=== PATIENT | male | born 1980 | race Caucasian/White ===

== ENCOUNTER 2019-03-17 13:12 | Emergency (ER) | payer BC, SELFPAY ==
[2019-03-17 13:23] VITALS: BP 113/74; PULSE 91; RESP 18; TEMP 36.8; O2SAT 98
--- NOTE | 2019-03-17 13:25 | ED.GENADULT ---
HPI - General Adult General Chief complaint: Upper Respiratory Infection Stated complaint: Congestion,Cough Source: patient and RN notes reviewed Mode of arrival: ambulatory Limitations: no limitations History of Present Illness HPI narrative: This is a 38 years old male presents to the office for an evaluation of cough since last night. Associated with feeling chilled and freezing.He smoke about 2 cigarettes a day.His mother is sick with bronchitis.No treatment prior to arrival. Related Data Allergies Allergy/AdvReac Type Severity Reaction Status Date / Time No Known Allergies Allergy Verified 02/06/19 10:08 Review of Systems Review of Systems: Narrative: CONSTITUTIONAL: Denies fever ENT:Reports head congestion, sore throat. Denies otalgia. CARDIOVASCULAR: Denies chest pain RESPIRATORY: Denies dyspnea, wheezing. Reports dry cough GASTROINTESTINAL: Denies abdominal pain, vomiting, diarrhea. +nausea GENITOURINARY: Denies urinary symptoms or discharge SKIN: Denies rash MUSCULOSKELETAL: Denies acute back pain NEUROLOGIC: Denies lightheaded PMFSH Family History Family History Mother Patient's mother is in good health Father Patient's father is in good health Sibling Patient's sister is in good health Social History Social History Smoking status: Current every day smoker Smoking end date: 02/05/14 Alcohol intake: never Comments At time of signature, I agree with nursing past medical, surgical, social and family history. There is no relevant family history pertinent to the presenting complaint. Exam Narrative: Exam Narrative: GENERAL: This is a well-nourished, well-developed patient, in no apparent distress. EYES: Sclera clear/white. Vision is grossly intact. EARS: External ears normal, auditory canals clear and without drainage, TMs normal without perforation. Hearing grossly intact. NOSE: External nose normal with no obvious nasal discharge, nares without redness, no rhinorrhea. THROAT: Mucous membranes moist, posterior pharynx erythema, edematous with drainage NECK: Neck supple, non-tender without lymphadenopathy, masses or thyromegaly. CARDIOVASCULAR: Regular rate and rhythm without murmurs, gallops, or rubs. RESPIRATORY: Clear to auscultation. Breath sounds equal bilaterally. No wheezes, rales, or rhonchi. GASTROINTESTINAL: Abdomen soft, non-tender, nondistended. Bowel sounds are active. No hepato-splenomegaly, or palpable masses. No guarding. SKIN: warm, intact with no suspicious lesions or rash, good texture and turgor. NEURO: awake, alert, and oriented to person, place and time. There were no obvious focal neurologic abnormalities. Steady gait Gerardo Coma Scale Eye Opening: Spontaneous 4 Gerardo Coma Scale Motor: Obeys Commands 6 Gerardo Coma Scale Verbal: Oriented 5 Course Vital Signs Vital signs: Vital Signs Temperature 98.3 F 03/17/19 13:23 Pulse Rate 91 03/17/19 13:23 Respiratory Rate 18 03/17/19 13:23 Blood Pressure 113/74 03/17/19 13:23 Pulse Oximetry 98 03/17/19 13:23 Temperature 98.3 F 03/17/19 13:23 Pulse Rate 91 03/17/19 13:23 Respiratory Rate 18 03/17/19 13:23 Blood Pressure 113/74 03/17/19 13:23 Pulse Oximetry 98 03/17/19 13:23 Medical Decision Making MDM Narrative Medical decision making narrative: Discharge instructions reviewed with patient, as well as provided in writing per nursing staff. The instructions also include specific and strict return/GO TO THE ER as well as f/u information. All questions have been answered, and the patient deny any further questions with discharge and discharge plan. Differential Diagnosis Differential Diagnosis: pneumonia, Allergic Rhinitis, Upper respiratory cough syndrome, Pharyngitis, Sinusitis, Bronchitis, otitis media, viral URI, Asthma/reactive airway disease, influenza Medical Records
== END 2019-03-17 14:06 | disposition home or self-care (01) ==
PROVIDERS: Emergency Provider Nurse Practitioner
DX: J10.1 Influenza due to other identified influenza virus with other respiratory manifestations (principal); I10 Essential (primary) hypertension; E11.9 Type 2 diabetes mellitus without complications
CPT/HCPCS: 87081; 87804; 87880; 99213; G0463

== ENCOUNTER 2020-03-24 14:40 | Emergency (ER) | payer BC, SELFPAY ==
[2020-03-24 14:47] VITALS: BP 116/82; PULSE 84; RESP 18; TEMP 36.7; O2SAT 100
--- NOTE | 2020-03-24 15:28 | ED.ABDPAIN ---
HPI - Abdominal Pain General Chief Complaint: Abdominal Pain Stated Complaint: Right Side Pain Time Seen by Provider: 03/24/20 15:17 Source: patient and RN notes reviewed Mode of arrival: ambulatory Limitations: no limitations History of Present Illness HPI narrative: Patient presents today with a 3-day history of right upper quadrant abdominal pain that occasionally radiates into the back. States it is not present when he wakes up but worsens throughout the day every day. It does not wake him up while he is sleeping. States the pain is constant throughout the day. Associated symptoms include decreased appetite. Denies fever, nausea, vomiting, diarrhea, constipation, chest pain or shortness of breath, any urinary symptoms. Reports occasional increased pain with movement. Currently rates his pain 4/10 and has tried Tums without relief. History of diet-controlled type 2 diabetes, CVA, cardiac stents. MD elicited complaint: abdominal pain Related Data Home Medications Medication Instructions Recorded Confirmed No Home Medications 03/24/20 03/24/20 Allergies Allergy/AdvReac Type Severity Reaction Status Date / Time No Known Allergies Allergy Verified 03/24/20 15:04 Review of Systems Review of Systems: Narrative: CONSTITUTIONAL: Denies body aches, fever, chills, or sweats. EYES: Denies visual changes, redness, or discharge. ENT: Denies rhinorrhea, congestion, sore throat, or otalgia. CARDIOVASCULAR: Denies chest pain, palpitations, or edema. RESPIRATORY: Denies cough or dyspnea. GASTROINTESTINAL: Denies nausea, vomiting, or diarrhea. + Right upper quadrant abdominal pain, decreased appetite GENITOURINARY: Denies dysuria or hematuria. SKIN: Denies rash, itching, or wounds. MUSCULOSKELETAL: Denies back pain, joint pain, or myalgia. NEUROLOGIC: Denies headache, numbness, tingling, or weakness. PSYCH: Denies depression or anxiety. [facility] Past Medical History Medical History (Updated 03/24/20 @ 15:34 by Ramila Sam, DOTTY, ) CVA (cerebral vascular accident) Diabetes Hypertension Surgical History Surgical History (Updated 03/24/20 @ 15:29 by Ramila Sam, DOTTY, ) Hx of heart artery stent Family History Family History Mother Patient's mother is in good health Father Patient's father is in good health Sibling Patient's sister is in good health Social History Social History Smoking status: Current every day smoker Smoking end date: 02/05/14 Alcohol intake: never Gender identity (if verbalized by the patient): Male Comments At time of signature, I have reviewed and agree with nursing past medical, surgical, social and family history unless otherwise noted. Please see nursing chart for further information. There is no relevant family history pertinent to the presenting complaint Exam Narrative: Exam Narrative: GENERAL: Well-appearing, well-nourished, and in no acute distress. HEAD: Normocephalic, atraumatic. EYES: EOMI. No redness or drainage. Conjunctivae normal. ENT: Mucous membranes pink and moist. NECK: Normal AROM. CHEST: No respiratory distress. Clear to auscultation. HEART: Regular rate and rhythm. No murmur appreciated. Normal peripheral pulses. ABDOMEN: Soft, nontender, nondistended, normal active bowel sounds. No pulsatile masses. Patient localizes pain to the right upper quadrant. -CVAT MUSCULOSKELETAL: No bony tenderness. EXTREMITIES: Normal range of motion. No edema. SKIN: Warm, dry, no rash. Capillary refill normal. Normal skin turgor. NEURO: No focal deficits. Alert and oriented x3. Gait steady. PSYCH: Normal affect. No signs of depression or anxiety. Course Course Emergency Course: Patient will be transferred to [facility] for further evaluation of his right upper quadrant abdominal pain. Vital Signs Vital signs: Vital Signs Temperatu
== END 2020-03-24 15:33 | disposition short-term general hospital (02) ==
PROVIDERS: Emergency Provider Nurse Practitioner
DX: R10.11 Right upper quadrant pain (principal); F17.200 Nicotine dependence, unspecified, uncomplicated; E11.9 Type 2 diabetes mellitus without complications; I10 Essential (primary) hypertension; Z86.73 Personal history of transient ischemic attack (TIA), and cerebral infarction without residual deficits
CPT/HCPCS: 99212; G0463

== ENCOUNTER 2020-03-24 15:55 | Observation (INO) | payer BC, SELFPAY ==
--- NOTE | ~2020-03-24 | US_ITS ---
EXAMINATION: US abdomen limited DATE: 03/25/2020 09:30 INDICATION: Pancreatitis, epigastric abdominal pain TECHNIQUE: Multiple grayscale and Doppler ultrasound images of the abdomen were obtained. COMPARISON: None available FINDINGS: The head, body, and tail of the pancreas are normal. The liver is normal with normal echoge nicity and echotexture. No surface nodularity. Normal hepatopetal flow in the main portal vein. There are multiple, relatively immobile stones of the gallbladder. No gallbladder wall thickening or peric holecystic fluid are identified. The normal common bile duct measures 5 mm. There was no sonographic Calderón sign. IMPRESSION: 1. Likely multiple gallstones without evidence of cholecystitis. Reviewed, dictated and finalized at location A. ROSCOPE TESTER
--- NOTE | ~2020-03-24 | CT_ITS ---
EXAMINATION: CT abdomen pelvis w con EXAM DATE: 03/24/2020 18:09 INDICATION: Right upper quadrant pain, symptoms 3 days. TECHNIQUE: Spiral CT of the abdomen and pelvis was performed following intravenous injection of 100 m L Omnipaque 350. Axial, coronal and sagittal images were reviewed. The dose-length product (DLP) fo r this examination was 774.96 mGy-cm. The exposure was tailored according to patient size (auto mA e xposure control), and iterative reconstruction (ASIR) was used as additional dose reduction technique . There is no prior study for comparison. FINDINGS: There are indistinct fat planes adjacent to the pancreatic head, could indicate acute pancr eatitis. Please correlate with amylase and lipase levels. Probable hepatic steatosis. Spleen, adrenal glands are unremarkable. The gallbladder is contracted but otherwise unremarkable. Portal and sple lisa veins are patent. Kidneys enhance symmetrically. There is no hydronephrosis. Small regions of b ilateral renal cortical scarring from prior infection or infarction. Moderately diffusely thickened bladder wall, acute or chronic cystitis. Correlate with urinalysis. Th e prostate is unremarkable. There is no retroperitoneal or pelvic lymphadenopathy. There is mild scattered arteriosclerotic disease. The appendix is normal. The stomach and small bowel are unremarkable. There is moderate amount of c olonic stool. No free intraperitoneal gas. The heart is normal in size. There are no pericardial or pleural effusions. Dependent groundglass opacity most likely subsegmental atelectasis. There ar e no osteoblastic or osteolytic lesions identified. IMPRESSION: 1. Indistinct fat planes at pancreatic head, possible acute pancreatitis. Correlate with amylase and lipase. 2. Moderate diffuse bladder wall thickening. Correlate with urinalysis. 3. Bilateral renal cortical scarring from prior infections or infarctions. Reviewed, dictated and finalized at location A. AL RECRUITER IMPRESSION: 1. Indistinct fat planes at pancreatic head, possible acute pancreatitis. Emily elate with amylase and lipase. 2. Moderate diffuse bladder wall thickening. Correlate with urinalysis. 3. Bilateral renal cortical scarring from prior infections or infarctions.
[2020-03-24 15:59] VITALS: BP 131/80; PULSE 85; RESP 20; TEMP 36.1; O2SAT 100
[2020-03-24 16:09] LABS: Basophils Percent Auto 0.2 % (0.2-1.2); Eosinophils Absolute Auto 0.2 K/mm3 (0-0.3); Eosinophils Percent Auto 2.5 % (0-4.4); Hematocrit 53.2 % (42.0-52.0); Hemoglobin 18.8 g/dL (14.0-18.0); Immature Granulocyte Absolute 0.03 K/mm3 (0.00-0.031); Immature Granulocyte Percent A 0.3 % (0-0.5); Lymphocytes Absolute Auto 2.75 K/mm3 (0.9-3.2); Lymphocytes Percent Auto 31.5 % (18.3-44.2); Mean Corpuscular HGB Conc 35.3 g/dl (32-36); Mean Corpuscular Hemoglobin 33.2 pg (26-34); Mean Platelet Volume 9.8 fl (7.4-10.4); Monocytes Absolute Auto 1.1 K/mm3 (0.1-0.6); Monocytes Percent Auto 12.8 % (2.6-8.5); Neutrophils Absolute Auto 4.6 K/mm3 (1.3-6.7); Neutrophils Percent Auto 52.7 % (45.5-73.1); Platelet Count Result 213 k/mm3 (150-375); Red Blood Count 5.66 M/mm3 (4.6-6.20); Red Cell Distribution Width 12.6 % (11.5-14.5); White Blood Count 8.7 K/mm3 (4.5-10.0)
[2020-03-24 16:14] LABS: Add Urine Microscopic? YES; Appearance Urine Cloudy (Clear); Bacteria Urine Trace /hpf; Bilirubin Urine Negative (Negative); Blood Urine Negative (Negative); Color Urine Yellow (Yellow); Glucose Urine UA 3+ mg/dL (Negative); Ketones Urine Negative (Negative); Leukocyte Esterase Ur Trace LEU/UL (Negative); Mucus Urine Rare /lpf; Nitrate Urine Positive (Negative); Protein Urine Negative (Negative); RBC Urine 0-2 /hpf (0-2); Specific Grav Ur 1.023 (1.001-1.035); Squamous Epithelial Cell Urine Rare /hpf (Few); Urobilinogen Urine Negative mg/dL (<2.0); WBC Clumps Urine Present /HPF
[2020-03-24 16:23] LABS: Alanine Aminotransferase 35 U/L (4-50); Albumin Level 4.1 g/dL (3.5-5.1); Alkaline Phosphatase 57 U/L (38-126); Anion Gap 2 mmol/L (8-16); Aspartate Amino Transferase 26 U/L (17-59); Bilirubin,Total 0.7 mg/dL (0.2-1.3); Blood Urea Nitrogen 9 mg/dL (9-20); Calcium 9.2 mg/dL (8.4-10.2); Carbon Dioxide 33 mmol/L (22-30); Chloride 101 mmol/L (98-107); Estimated CRCL calculation 137 ml/min; Estimated Glomerular Filt Rate > 60; Glucose 237 mg/dL (75-110); Lipase 810 U/L (23-300); Potassium 4.2 mmol/L (3.4-5.0); Sodium 136 mmol/L (137-145)
[2020-03-24] MEDS: PANTOPRAZOLE SODIUM IV 40 MG VIAL IV PUSH (18:02)
[2020-03-24] MEDS: MORPHINE SULFATE (*CRX) 4 MG/ML INJ IV PUSH (18:02)
[2020-03-24] MEDS: SODIUM CHLORIDE 0.9% IV 1,000 ML 999 ML IV CONT (18:02)
--- NOTE | 2020-03-24 18:03 | PC.NURSE ---
Pt to CT via stretcher.
[2020-03-24 18:14] VITALS: BP 119/87; PULSE 78; RESP 15; O2SAT 98
--- NOTE | 2020-03-24 19:36 | ED.GENADULT ---
HPI - General Adult General Chief complaint: Abdominal Pain Stated complaint: ABD Pain Time Seen by Provider: 03/24/20 16:23 Source: patient Mode of arrival: ambulatory Limitations: no limitations History of Present Illness HPI narrative: Patient is 39-year-old male who presents with upper right-sided and epigastric abdominal pain for the last several days was seen in urgent care referred to emergency department denies similar occurrence in the past patient denies similar occurrence alcohol abuse injury or trauma or any relation to eating does note nausea and decreased appetite patient denies URI symptoms or other complaints has not taken anything for his symptoms and on arrival notes 4 out of 10 pain Related Data Home Medications Medication Instructions Recorded Confirmed No Home Medications 03/24/20 03/24/20 Allergies Allergy/AdvReac Type Severity Reaction Status Date / Time No Known Allergies Allergy Verified 03/24/20 15:04 Review of Systems Review of Systems: All systems reviewed & are unremarkable except as noted in HPI and below PMFSH Past Medical History Medical History CVA (cerebral vascular accident) Diabetes Hypertension Surgical History Surgical History Hx of heart artery stent Family History Family History Mother Patient's mother is in good health Father Patient's father is in good health Sibling Patient's sister is in good health Social History Social History Smoking status: Current every day smoker Smoking end date: 02/05/14 Alcohol intake: never Gender identity (if verbalized by the patient): Male Exam Narrative: Exam Narrative: GENERAL: Well-appearing, well-nourished, and in no acute distress. HEAD: Normocephalic, atraumatic. EYES: PERRLA and EOMI. ENT: Nares clear, no rhinorrhea or epistaxis. Mucous membranes moist. CHEST: Clear to auscultation. No respiratory distress. No wheezes rales or rhonchi HEART: Regular rate and rhythm. No murmur heard. Normal peripheral pulses. ABDOMEN: Soft, tenderness in the upper quadrants, nondistended. EXTREMITIES: Normal range of motion. No edema. SKIN: Warm, dry, no rash. NEURO: No focal deficits. Alert and oriented x3. Cranial nerves II through XII grossly intact. PSYCH: Normal mood and affect. Course Course Emergency Course: Patient in the room is been hydrated medicated will be brought into the hospital for pancreatitis urinary tract infection and hyperglycemia patient was hydrated in the emergency department agrees with plan to be hospitalized will have GI consult was also given antibiotics for his urinary tract infection Consultations Consultation #1: Discussed case with hospitalist Lelia was accepted the patient Discussed case with Dr. Shields who has accepted the patient for consult Date: 03/24/20 Time: 19:38 Vital Signs Vital signs: Vital Signs Temperature 96.9 F L 03/24/20 15:59 Pulse Rate 85 03/24/20 15:59 Respiratory Rate 20 03/24/20 15:59 Blood Pressure 131/80 03/24/20 15:59 Pulse Oximetry 100 03/24/20 15:59 Temperature 96.9 F L 03/24/20 15:59 Pulse Rate 78 03/24/20 18:14 Respiratory Rate 15 03/24/20 18:14 Blood Pressure 119/87 03/24/20 18:14 Pulse Oximetry 98 03/24/20 18:14 Medical Decision Making MDM Narrative Medical decision making narrative: Patient with several issues on this visit to include pancreatitis urinary tract infection will be brought in the hospital treated for these with GI consult under the hospitalist service hemodynamically stable ABCs intact and stable Vital Signs Vital Signs: Vital Signs Temperature 96.9 F L 03/24/20 15:59 Pulse Rate 85 03/24/20 15:59 Respiratory Rate 20 03/24/20 15:59 Blood Pressure 131/80 03/24
--- NOTE | 2020-03-24 21:23 | PC.NURSE ---
Called to give report to nurse. was told that nurse was in another room and will call me back.
[2020-03-24 21:45] VITALS: BP 110/73; PULSE 73; RESP 20; TEMP 36.7; O2SAT 100; BMI 29.0
--- NOTE | 2020-03-24 22:07 | PC.NURSE ---
This patient, Alexander Cook Jr., was admitted to 3 [facility] Surg Room 312-01. Patient/family oriented to hospital policies and general routines including ID bracelet, bed and alarms, visiting hours, pain management, procedures, bathroom and other care routines, personal items, smoking policy, room service/diet, and visiting hours. Information on how to activate the Rapid Response Team has been discussed. Patient/Family are encouraged to report perceived risks to care and to ask questions if they do not understand what they are told or what they should do.
[2020-03-24] MEDS: LACTATED RINGERS 1,000 ML 125 ML IV CONT (22:22)
[2020-03-25 00:30] LABS: Glucose Point of Care 122 (65-105)
--- NOTE | 2020-03-25 01:26 | PM.IMHP ---
H&P: HPI History of Present Illness Date/Time: 03/25/20 01:26 Chief Complaint: RUQ abd pain Narrative: This is a pleasant 39 year old male who is known to previously be healthy and presented to the hospital with a complaint of epigastric and RUQ abdominal pain for the past several days. He denies any trauma, alcohol abuse, or GB disease. He denies any vomiting but has had nausea with food intake. The patient denies any fevers, chills, chest pain, cough, dysuria, or rectal bleeding. CT abd/pelvis was obtained in the ER which demonstrated indistinct fat planes at pancreatic head. Lipase was mildly elevated at 810. The patient was admitted for observation. On my encounter with the patient he currently denies any symptoms and states that he wants to leave and go home first thing in the morning. No other complaints. Review of Systems Review of Systems: All systems reviewed & are unremarkable except as noted in HPI and below PMFSH Past Medical History Medical History CVA (cerebral vascular accident) Diabetes Hypertension Surgical History Surgical History Hx of heart artery stent Family History Family History Mother Patient's mother is in good health Father Patient's father is in good health Sibling Patient's sister is in good health Grandparent Acute myocardial infarction Social History Social History Years smoked: 20 Smoking status: Current every day smoker Tobacco type: cigars Smoking end date: 02/05/14 Alcohol intake: never Substance use: never Gender identity (if verbalized by the patient): Male Spiritual care concerns: No Meds Home Medications and Allergies Home Medications Medication Instructions Recorded Confirmed Type No Home Medications 03/24/20 03/24/20 History Allergies Allergy/AdvReac Type Severity Reaction Status Date / Time No Known Allergies Allergy Verified 03/24/20 15:04 Vital Signs Vital Signs - 24 hr 03/24/20 15:59 03/24/20 18:14 03/24/20 21:45 Temperature 36.1 C L 36.7 C Pulse Rate 85 78 73 Respiratory Rate 20 15 20 Blood Pressure 131/80 119/87 110/73 Pulse Oximetry 100 98 100 Exam Const: General: cooperative, no acute distress, alert and awake Nutritional Appearance: well nourished Orientation/consciousness: patient oriented x3 HENMT: Head: normal to inspection General nose exam: Normal external nose present Face and sinus: normal facial exam Mouth: Yes Normal oral and palatal mucosa present and Yes oropharynx normal Eyes: Pupils: Equal, round and reactive pupils present EOM: EOMs intact bilaterally Neck: Neck: supple and no JVD Thyroid: thyroid normal Lymphatic: lymphadenopathy not noted Resp: Effort & Inspection: normal respiratory effort Auscultation: clear to auscultation bilaterally Cardio: Rate: regular rate Rhythm: regular rhythm Heart sounds: no murmurs GI: Inspection: normal to inspection GI Palp: Yes abdominal tenderness (RUQ+ ), No Guarding due to palpation present (GI) and No Rigid due to palpation Auscultation: normal bowel sounds Rectal Exam: deferred Skin: General skin exam: normal color and no rashes or lesions noted Neuro: General: patient oriented x3 Cranial nerves: Yes CN's II-XII intact bilaterally and Yes Equal, round and reactive pupils present Speech: normal speech Motor exam (neuro): 5/5 motor strength present throughout Sensory Exam: normal sensation Extrem: General: normal to inspection and no edema Psych: Mental Status: mental status grossly normal Affect: normal affect H&P: Results Labs Labs: Short CBC 03/24/20 Range/Units 16:02 WBC 8.7 (4.5-10.0) K/mm3 Hgb 18.8 H (14.0-18.0) g/dL Hct 53.2 H (42.0-52.0) % Plt Count 213 (150-375) k/mm3 [facility] 03/08
[2020-03-25] MEDS: MORPHINE SULFATE (*CRX) 4 MG/ML INJ IV PUSH (02:07)
[2020-03-25 06:00] VITALS: BP 120/65; PULSE 80; RESP 20; TEMP 36.6; O2SAT 98
[2020-03-25] MEDS: LACTATED RINGERS 1,000 ML 125 ML IV CONT (06:09)
[2020-03-25 06:22] LABS: Basophils Percent Auto 0.5 % (0.2-1.2); Eosinophils Absolute Auto 0.2 K/mm3 (0-0.3); Eosinophils Percent Auto 2.6 % (0-4.4); Hematocrit 50.6 % (42.0-52.0); Hemoglobin 17.3 g/dL (14.0-18.0); Immature Granulocyte Absolute 0.02 K/mm3 (0.00-0.031); Immature Granulocyte Percent A 0.2 % (0-0.5); Lymphocytes Absolute Auto 2.92 K/mm3 (0.9-3.2); Lymphocytes Percent Auto 34.7 % (18.3-44.2); Mean Corpuscular HGB Conc 34.2 g/dl (32-36); Mean Corpuscular Hemoglobin 32.1 pg (26-34); Mean Corpuscular Volume 93.9 fl (80-100); Mean Platelet Volume 9.9 fl (7.4-10.4); Monocytes Percent Auto 11.9 % (2.6-8.5); Neutrophils Absolute Auto 4.2 K/mm3 (1.3-6.7); Neutrophils Percent Auto 50.1 % (45.5-73.1); Platelet Count Result 189 k/mm3 (150-375); Red Blood Count 5.39 M/mm3 (4.6-6.20); Red Cell Distribution Width 12.6 % (11.5-14.5); White Blood Count 8.4 K/mm3 (4.5-10.0)
[2020-03-25 06:34] LABS: Alanine Aminotransferase 26 U/L (4-50); Albumin Level 3.4 g/dL (3.5-5.1); Alkaline Phosphatase 51 U/L (38-126); Anion Gap 2 mmol/L (8-16); Aspartate Amino Transferase 22 U/L (17-59); Bilirubin,Total 0.8 mg/dL (0.2-1.3); Blood Urea Nitrogen 6 mg/dL (9-20); Calcium 8.8 mg/dL (8.4-10.2); Carbon Dioxide 30 mmol/L (22-30); Chloride 105 mmol/L (98-107); Estimated CRCL calculation 137 ml/min; Estimated Glomerular Filt Rate > 60; Glucose 121 mg/dL (75-110); Lipase 381 U/L (23-300); Potassium 4.2 mmol/L (3.4-5.0); Sodium 137 mmol/L (137-145)
[2020-03-25 06:38] LABS: Hemoglobin A1C 6.7 % (<5.7)
[2020-03-25 06:46] LABS: Glucose Point of Care 116 (65-105)
--- NOTE | 2020-03-25 08:27 | WPDGICN ---
Assessment and Plan Assessment and plan (1) Acute pancreatitis: Code(s): K85.90 - Acute pancreatitis without necrosis or infection, unspecified Status: Acute Assessment and Plan: he is asymptomatic now, will start full liquid diet then advance as tolerated he would like to go home today, he can follow up with me in office and then we can schedule EGD to look for other causes of abdominal pain patient was told by his vascular doctor that can not get MRI (I was planning to get MRCP to assess biliary tract and pancreas) because stents placed few years ago. (2) RUQ abdominal pain: Code(s): R10.11 - Right upper quadrant pain Status: Acute Assessment and Plan: resolved, probably from pancreatitis will do EGD as outpatient (3) Acute hyperglycemia: Code(s): R73.9 - Hyperglycemia, unspecified Status: Acute Assessment and Plan: will need to follow-up with pcp and recheck again, probably pre-DM (4) Urinary tract infection: Code(s): N39.0 - Urinary tract infection, site not specified Status: Acute Assessment and Plan: started on iv rocephin. GI Consult Note Consult date/time: 03/25/20 08:27 Reason for consult: abdominal pain, pancreatitis HPI: Alexander Cook Jr. is a 39 year old male with no major medical problems other than stents about 6 years ago here with new onset of pain in epigastric and RUQ abdominal pain for last 4 days progressively got worse. He denies previous episode of pancreatitis, biliary colic or alcohol use. He denies any nausea, no fever. Last time received pain med was at 130am and now he says that pain is gone, he is hungry and would like to go home today because have to go back to work. CT abd/pelvis reviewed which demonstrated indistinct fat planes at pancreatic head, possible acute pancreatitis. Lipase was mildly elevated at 810 down to 340, liver enzymes normal. Also had hyperglycemia. Review of Systems Constitutional: Constitutional: Denies headache(s) and Denies weakness Eyes: Eyes: Denies blurry vision ENT: Reports Normal hearing present, Denies headache(s) and Denies neck pain Cardiovascular: Cardiovascular: Denies chest pain and Denies dyspnea Respiratory: Respiratory: Denies dyspnea Gastrointestinal: Gastrointestinal: Reports no additional gastrointestinal complaints Genitourinary: Genitourinary: Denies dysuria Musculoskeletal: Musculoskeletal: Denies neck pain Integumentary/Breasts: Skin/Breast: Denies dry skin Neurologic: Reports Normal hearing present, Denies headache(s) and Denies weakness Psychiatric: Psychiatric: Denies anxiety Endocrine: Endocrine: Denies change in body appearance Hematologic/Lymphatic: Hematologic/Lymphatic: Denies easy bleeding Allergic/Immunologic: Allergic/Immunologic: Denies urticaria PMFSH Past Medical History Medical History CVA (cerebral vascular accident) Diabetes Hypertension Surgical History Surgical History Hx of heart artery stent Family History Family History Mother Patient's mother is in good health Father Patient's father is in good health Sibling Patient's sister is in good health Grandparent Acute myocardial infarction Social History Social History Years smoked: 20 Smoking status: Current every day smoker Tobacco type: cigars Smoking end date: 02/05/14 Alcohol intake: never Substance use: never Gender identity (if verbalized by the patient): Male Spiritual care concerns: No Meds Home Medications and Allergies Home Medications Medication Instructions Recorded Confirmed Type No Home Medications 03/24/20 03/24/20 History Allergies Allergy/AdvReac Type Severity Reaction Status Date / Time No Known Allergies Allergy
[2020-03-25] MEDS: PANTOPRAZOLE SODIUM IV 40 MG VIAL IV PUSH (09:20)
--- NOTE | 2020-03-25 10:02 | PM.DS ---
DS: Admitting Diagnosis Admitting Diagnosis Admitting Diagnosis: (1) RUQ abdominal pain: (2) Abnormal glucose: (3) Abnormal urinalysis: DS: Discharge Diagnosis Discharge Diagnosis (1) Tobacco abuse: Code(s): Z72.0 - Tobacco use Status: Acute Assessment and Plan: Patient is cutting down on amount. (2) Dyspepsia: Code(s): R10.13 - Epigastric pain Status: Acute Assessment and Plan: Will see Dr. Shields in the outpatient setting. (3) Abnormal glucose: Code(s): R73.09 - Other abnormal glucose Status: Acute Assessment and Plan: Will follow up in the outaptient setting. (4) Abnormal urinalysis: Code(s): R82.90 - Unspecified abnormal findings in urine Status: Acute Assessment and Plan: Not UTI low wbc (5) RUQ abdominal pain: Code(s): R10.11 - Right upper quadrant pain Status: Acute Assessment and Plan: Cholelithiasis will follow up in the outpatient setting with Dr. Shields. (6) Acute pancreatitis: Code(s): K85.90 - Acute pancreatitis without necrosis or infection, unspecified Status: Acute Assessment and Plan: Stable Will follow up in the outpatient setting Tolerating po (7) Acute hyperglycemia: Code(s): R73.9 - Hyperglycemia, unspecified Status: Acute Assessment and Plan: Follow up in the outpatient setting (8) Urinary tract infection: Code(s): N39.0 - Urinary tract infection, site not specified Status: Acute Assessment and Plan: Ruled out. DS: Summary Hospital Course Hospital Course: This is a pleasant 39 year old male who is known to previously be healthy and presented to the hospital with a complaint of epigastric and RUQ abdominal pain for the past several days, no trauma, alcohol abuse, or GB disease. He denies any vomiting but has had nausea with food intake. The patient denies any fevers, chills, chest pain, cough, dysuria, or rectal bleeding. CT abd/pelvis was obtained in the ER which demonstrated indistinct fat planes at pancreatic head. Lipase was mildly elevated at 810. The patient was admitted for observation. Patient was admitted overnight and consult to GI. In the morning the patient stated that he was feeling well and tolerated diet. GI was agreeable in seeing him in the outpatient setting for MRCP Patient was discharged home Status at Discharge Cognitive/behavioral status at discharge: AOx 3 Functional status at discharge: independent ambulation Time Spent with Patient Time attestation: Total time spent providing and/or coordinating discharge services: Exam Const: General: cooperative and well developed Nutritional Appearance: well nourished Orientation/consciousness: patient oriented x3 HENMT: Head: normal to inspection Ears: hearing grossly normal bilaterally General nose exam: Normal external nose present Face and sinus: normal facial exam Eyes: Pupils: Equal, round and reactive pupils present EOM: EOMs intact bilaterally Neck: Neck: no lymphadenopathy Resp: Auscultation: clear to auscultation bilaterally Cardio: Jugular venous distension: no JVD Rate: regular rate Rhythm: regular rhythm GI: GI Palp: Yes Soft to palpation and Yes No hepatosplenomegaly present Skin: Rashes: no rashes Neuro: General: patient oriented x3 Cranial nerves: Yes CN's II-XII intact bilaterally and Yes Equal, round and reactive pupils present Cognition (Neuro): normal cognition Speech: normal speech Gait exam (Neuro): Normal gait present Motor exam (neuro): 5/5 motor strength present throughout DS: Data Data Completed and Pending Labs on day of discharge: Labs from last 24 hours 03/25/20 03/25/20 03/25/20 06:07 05:56 05:56 WBC RBC Hgb Hct MCV MCH MCHC RDW Plt Count MPV Immature Gran % (Auto) Neut % (Auto) Lymph % (Auto) [place] % (Auto) Eos % (Auto)
== END 2020-03-25 12:15 | disposition home or self-care (01) ==
LOC: ANHED 19:40 → ANH3MEDSUR 20:53
PROVIDERS: Emergency Medicine; Emergency Medicine Emergency Medical Services; Family Medicine; Admitting Provider Internal Medicine; Emergency Provider Family Medicine; Visit Provider Internal Medicine
DX: K85.90 Acute pancreatitis without necrosis or infection, unspecified (principal); K80.20 Calculus of gallbladder without cholecystitis without obstruction; R73.9 Hyperglycemia, unspecified; R82.90 Unspecified abnormal findings in urine; F17.290 Nicotine dependence, other tobacco product, uncomplicated; Z95.5 Presence of coronary angioplasty implant and graft
CPT/HCPCS: 36415; 74177; 76705; 80053; 81001; 82948; 83036; 83690; 85025; 87086; 87491; 87591; 96361; 96365; 96366; 96375; 96376; 99285; C9113; G0378; J0696; J2270; J7030; J7120; Q9967

== ENCOUNTER → 2020-04-03 01:30 | Outpatient (CLI) | payer BC, SELFPAY ==
[2020-04-03 19:42] LABS: SARS-CoV-2 RNA PCR Negative
== END ==
PROVIDERS: Visit Provider Internal Medicine Gastroenterology
DX: Z01.812 Encounter for preprocedural laboratory examination (principal); Z20.822 Contact with and (suspected) exposure to COVID-19
CPT/HCPCS: C9803; U0003; U0005

== ENCOUNTER 2020-04-06 01:59 | Day surgery (SDC) | payer BC, SELFPAY ==
[2020-03-29 09:13] VITALS: BMI 32.0
[2020-04-06 10:06] VITALS: BP 120/78; PULSE 87; RESP 18; TEMP 36.4; O2SAT 99; BMI 30.9
[2020-04-06] MEDS: LACTATED RINGERS 1,000 ML 150 ML IV CONT (10:17)
--- NOTE | 2020-04-06 10:35 | WPDANESEPPF ---
Anes - Initial Pre Proc Eval Procedure: Operation Date: 04/06/20 11:30 Proposed Procedures p Esophagogastroduodenoscopy - Jeremy Stahl MD Date/Time: 04/06/20 10:35 Surgeon: Jeremy Stahl MD Pre Op Diagnosis: Abdom Pain Patient Data Age: 39 Gender: M Height: 6 ft Weight: 103.6 kg Last Vital Signs Temp 97.5 F L 04/06/20 10:06 Pulse 87 04/06/20 10:06 Resp 18 04/06/20 10:06 BP 120/78 04/06/20 10:06 Pulse Ox 99 04/06/20 10:06 Allergies Allergy/AdvReac Type Severity Reaction Status Date / Time No Known Allergies Allergy Verified 04/06/20 10:02 Home Medications Medication Instructions Recorded Confirmed Type No Home Medications 03/24/20 04/06/20 History Patient hx anesthesia problems: none Family hx anesthesia problems: none PMFSH Past Medical History Medical History CVA (cerebral vascular accident) Diabetes Hypertension Surgical History Surgical History Hx of heart artery stent Family History Family History Mother Patient's mother is in good health Father Patient's father is in good health Sibling Patient's sister is in good health Grandparent Acute myocardial infarction Social History Social History (System 03/25/20 @ 12:12 by Lashay Acuna) Smoking packs per day: 0.5 Smoking cigarettes per day: 10.0 Years smoked: 20 Smoking pack-years: 10.00 Smoking status: Current every day smoker Tobacco type: cigars Smoking end date: 02/05/14 Alcohol intake: never Substance use: never Substance use type: does not use Living arrangements: alone Gender identity (if verbalized by the patient): Male Spiritual care concerns: No Anes - Eval Final PreProcedure Day of Procedure 04/06/20 10:35 Patient weight: overweight Heart: regular rate and rhythm Lungs: clear to auscultation Airway: Mallampati scale class II Neurological: alert and oriented Last oral intake: >/= 8 hours ASA classification: III Emergent: no Anesthetic plan: proceed Anesthesia type and monitoring: general GIVS and standard monitoring Informed Consent: The patient's anesthetic plan and its attendant risks and benefits were discussed with the patient/family/POA. Questions were solicited and answers provided to the satisfaction of the patient/family/POA.
--- NOTE | 2020-04-06 10:46 | WPDHPUPDATE1 ---
History and Physical Update Update Date/Time: 04/06/20 10:46 History and Physical has been reviewed, including an updated exam of the patient. There are NO changes in the patient's condition. Risks, benefits, and alternatives have been discussed and questions answered. Patient agrees to proceed with procedure.
[2020-04-06 11:00] VITALS: BP 96/61; PULSE 76; RESP 30; O2SAT 95
[2020-04-06 11:10] VITALS: BP 106/74; PULSE 75; RESP 33; O2SAT 99
[2020-04-06 11:20] VITALS: BP 107/72; PULSE 76; RESP 20; O2SAT 99
== END 2020-04-06 11:33 | disposition home or self-care (01) ==
PROVIDERS: Visit Provider Internal Medicine Gastroenterology
PROC: 0DJ08ZZ Inspection of Upper Intestinal Tract, Via Natural or Artificial Opening Endoscopic (ICD-10-PCS; CPT 43235; principal; 2020-04-06 11:30)
DX: K30 Functional dyspepsia (principal); I10 Essential (primary) hypertension; E11.9 Type 2 diabetes mellitus without complications; Z86.73 Personal history of transient ischemic attack (TIA), and cerebral infarction without residual deficits; Z95.5 Presence of coronary angioplasty implant and graft; F17.210 Nicotine dependence, cigarettes, uncomplicated
CPT/HCPCS: 43239; 88305; C9803; J2001; J2704; J7120; U0003; U0005

== ENCOUNTER 2020-09-16 11:39 | Emergency (ER) | payer BC, SELFPAY ==
[2020-09-16 11:55] VITALS: BP 124/82; PULSE 90; RESP 16; O2SAT 98
--- NOTE | 2020-09-16 15:25 | ED.UPPEXIN ---
HPI - Extremity Injury (Upper) General Chief Complaint: Extremity Injury, Upper Stated Complaint: Left hand Pain Time Seen by Provider: 09/16/20 13:00 Source: patient and RN notes reviewed Mode of arrival: ambulatory Limitations: no limitations History of Present Illness HPI narrative: 39-year-old male presents with concern for left hand pain. Reports pain at the base of his left thumb, reports mild pain at rest, worse pain with range of motion. He denies any injury or trauma. 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 He denies open skin, redness, warmth, bruising, swelling. Denies intervention. MD complaint: injury to: left and hand Related Data Home Medications Medication Instructions Recorded Confirmed No Home Medications 03/24/20 04/06/20 Allergies Allergy/AdvReac Type Severity Reaction Status Date / Time No Known Allergies Allergy Verified 09/16/20 12:33 Review of Systems Review of Systems: CONSTITUTIONAL: Denies malaise, chills, sweats, or fever. SKIN: Denies rash, open skin, laceration, abrasion, redness, warmth, swelling MUSCULOSKELETAL: Reports pain at the base of the left NEUROLOGIC: Denies numbness, weakness All systems reviewed & are unremarkable except as noted in HPI and below PMFSH Past Medical History Medical History (Updated 09/16/20 @ 15:31 by Shani Barlow NP) CVA (cerebral vascular accident) Diabetes Dyspepsia Hypertension Tobacco abuse Surgical History Surgical History Hx of heart artery stent Family History Family History Mother Patient's mother is in good health Father Patient's father is in good health Sibling Patient's sister is in good health Grandparent Acute myocardial infarction Social History Social History Smoking packs per day: 0.5 Smoking cigarettes per day: 10.0 Years smoked: 20 Smoking pack-years: 10.00 Smoking status: Current some day smoker Tobacco type: cigars Smoking end date: 02/05/14 Alcohol intake: never Substance use: never Substance use type: does not use Gender identity (if verbalized by the patient): Male Spiritual care concerns: No Comments At time of signature, agree with nursing past medical, surgical, social and family history. There is no relevant family history pertinent to the presenting complaint Exam Narrative: GENERAL: Well-appearing, well-nourished, and in no acute distress. HEAD: Normocephalic EYES: PERRLA, conjunctivae clear NECK: Supple. CHEST: Speaks in full sentences. No respiratory distress. HEART: Regular rate and rhythm. Normal and equal peripheral pulses. EXTREMITIES: Left hand and digits of hand have normal strength and sensation. 5/5 strength with digit flexion, extension. Range of motion normal. No clubbing, cyanosis, or edema noted. Tenderness at the base of the third digit. Skin intact. Normal digital cascade with flexion of fingers, median, ulnar and radial nerve intact. Normal sensation of each side of finger. Can perform 'okay' sign, 'cross over finger test of index and middle fingers' and 'thumbs up' sign. No scissoring. Normal thumb opposition. Good capillary refill and radial pulse. Distal capillary refill less than 3 seconds. SKIN: Warn, dry, intact, pink. No rash. No digit erythema, warmth, induration NEURO: Alert and oriented x3. PSYCH: Normal mood and affect Course Course Emergency Course: Patient is aware of diagnosis, understands and agrees to treatment plan. Anticipatory guidance given. Patient agrees to follow-up as directed and is aware of reasons to seek care at the emergency department. Portions of this record may have been created with voice recognition software Vital Signs Vital signs: Vital Signs Pulse Rate 90 09/16/20 11:55 Respiratory Rate 16 09/16
== END 2020-09-16 13:16 | disposition home or self-care (01) ==
LOC: EXPCOLL 11:41
PROVIDERS: Emergency Provider Nurse Practitioner
DX: M77.8 Other enthesopathies, not elsewhere classified (principal); F17.290 Nicotine dependence, other tobacco product, uncomplicated; E11.9 Type 2 diabetes mellitus without complications; I10 Essential (primary) hypertension; Z86.73 Personal history of transient ischemic attack (TIA), and cerebral infarction without residual deficits
CPT/HCPCS: 99212; G0463